=== PATIENT | male | born 1975 | race Caucasian/White ===

== ENCOUNTER 2022-11-28 11:49 | Emergency (ER) | payer MEDICARE ==
[~2022-11-28] VITALS: Ht 180.3 cm; Wt 99.8 kg
[2022-11-28 12:19] VITALS: BP 161/109
[2022-11-28] MEDS ORDERED: CYCL10 PO (12:25)
[2022-11-28] MEDS ORDERED: PERCOCET 10-321 EA13 PO (12:25)
== END 2022-11-28 13:51 | disposition home or self-care (01) ==
LOC: ER 11:49
DX: Z76.0 Encounter for issue of repeat prescription (principal)
CPT/HCPCS: 99281

== ENCOUNTER 2022-12-11 16:49 | Emergency (ER) | payer MEDICARE ==
[~2022-12-11] VITALS: Ht 177.8 cm; Wt 99.8 kg
[~2022-12-11 16:49] MED LIST: CYCL10 PO; PERCOCET 10-321 EA13 PO
[2022-12-11 16:58] VITALS: BP 137/92
== END 2022-12-11 19:23 | disposition home or self-care (01) ==
LOC: ER 16:49
DX: M54.12 Radiculopathy, cervical region (principal); Z79.1 Long term (current) use of non-steroidal anti-inflammatories (NSAID)
CPT/HCPCS: 99283; A9270

== ENCOUNTER → 2022-12-29 | Outpatient (CLI) | payer MEDICARE | END | disposition home or self-care (01) | LOC: LAB 08:49 → LAB SHORT 08:49 | PROVIDERS: Nurse Practitioner Family | DX: G89.4 Chronic pain syndrome (principal); Z79.899 Other long term (current) drug therapy | CPT/HCPCS: G0480 ==

== ENCOUNTER → 2023-01-12 | Outpatient (CLI) | payer MEDICARE ==
[2023-01-12 12:56] LABS: BASOPHILS ABSOLUTE AUTO 0.02 K/mm3 (0.00-0.23); BASOPHILS PERCENT AUTO 0 % (0-2); EOSINOPHILS ABSOLUTE AUTO 0.16 K/mm3 (0.00-0.68); EOSINOPHILS PERCENT AUTO 2 % (0-6); Hematocrit 46.3 % (37.0-53.0); IMMATURE GRAN ABSOLUTE AUTO 0.02 K/mm3 (0.00-0.10); IMMATURE GRAN PERCENT AUTO 0 % (0-1); LYMPHOCYTES ABSOLUTE AUTO 1.24 K/mm3 (0.84-5.20); LYMPHOCYTES PERCENT AUTO 17 % (21-46); MONOCYTES ABSOLUTE AUTO 0.89 K/mm3 (0.16-1.47); MONOCYTES PERCENT AUTO 12 % (4-13); Mean Corpuscular HGB 30.5 pg (26.0-34.0); Mean Corpuscular HGB Conc 34.6 g/dL (31.5-36.5); Mean Corpuscular Volume 88 fL (80-100); NEUTROPHILS ABSOLUTE AUTO 5.03 K/mm3 (1.96-9.15); NEUTROPHILS PERCENT AUTO 68 % (41-73); Platelet Count 263 K/mm3 (150-400); RDW Coefficient Variation 12.5 % (11.7-14.2); RDW Standard Deviation 40.7 fL (35.1-46.3); Red Blood Cell Count 5.24 M/mm3 (4.30-5.90); White Blood Cell Count 7.36 K/mm3 (4.00-11.30)
[2023-01-12 13:51] LABS: Albumin, Blood 4.4 g/dL (3.4-5.0); Albumin/Globulin Ratio 1.4 (0.8-1.8); Bilirubin, Total 0.3 mg/dL (0.1-1.0); Bun/Creatinine Ratio 25.5 (12.0-20.0); Calcium, Blood 9.2 mg/dL (8.5-10.1); Creatinine, Blood 0.82 mg/dL (0.60-1.20); Globulin, Blood 3.2 g/dL (2.2-4.0); Potassium, Blood 4.1 mmol/L (3.5-5.5); Thyroid Stimulating Hormone 1.15 uIU/mL (0.360-4.800); Total Protein, Blood 7.6 g/dL (6.4-8.2)
== END | disposition home or self-care (01) ==
LOC: LAB SHORT 07:10 → LAB 07:10
PROVIDERS: Nurse Practitioner Family
DX: G89.4 Chronic pain syndrome (principal); R53.81 Other malaise; Z79.899 Other long term (current) drug therapy
CPT/HCPCS: 80053; 84443; 85025; G0480

== ENCOUNTER 2023-01-20 09:33 | Emergency (ER) | payer MEDICARE ==
[~2023-01-20] VITALS: Ht 177.8 cm; Wt 90.3 kg
[2023-01-20] MEDS ORDERED: PHENYTOIN SODI100 MG PO (09:50)
[2023-01-20] MEDS ORDERED: NASAL SPRAY88 ML (10:11)
[2023-01-20] MEDS ORDERED: FLUT.05NI (10:11)
[2023-01-20] MEDS ORDERED: AMOCLA875 PO (10:12)
[2023-01-20 11:30] VITALS: BP 154/86
== END 2023-01-20 11:44 | disposition home or self-care (01) ==
LOC: ER 09:33
DX: J01.90 Acute sinusitis, unspecified (principal); Z88.8 Allergy status to other drugs, medicaments and biological substances
CPT/HCPCS: 96374; 96375; 99283-25; A9270; J1100; J1885; J2765

== ENCOUNTER 2023-02-20 15:52 | Emergency (ER) | payer MEDICARE ==
[~2023-02-20] VITALS: Ht 177.8 cm; Wt 79.4 kg
[~2023-02-20 15:52] MED LIST changes: +AMOCLA875 PO; +FLUT.05NI; +NASAL SPRAY88 ML; +PHENYTOIN SODI100 MG PO
[2023-02-20 16:05] VITALS: BP 184/115
[2023-02-20 16:32] LABS: Source, Urine Clean Catch
[2023-02-20 16:37] LABS: Appearance, Urine Clear (Clear); Bilirubin, Urine Neg (Neg); Blood, Urine Neg (Neg); Color, Urine Yellow (P-Yellow); Glucose Qualitative, Urine Neg (Neg); Ketones, Urine Neg (Neg); Leukocyte Esterase, Urine Neg (Neg); Nitrite, Urine Neg (Neg); Protein, Urine Neg (Neg); Urobilinogen, Urine NORM (Normal)
[2023-02-20] MEDS ORDERED: OXYCODONE-ACET1 EAC2 (17:06)
[2023-02-20] MEDS ORDERED: SILDENAFIL CITR50 MG (17:07)
[2023-02-20] MEDS ORDERED: CYCL10 PO (17:07)
[2023-02-20] MEDS ORDERED: PHENYTOIN SODI100 MG PO (17:07)
[2023-02-20 17:37] LABS: BASOPHILS ABSOLUTE AUTO 0.03 K/mm3 (0.00-0.23); BASOPHILS PERCENT AUTO 0 % (0-2); EOSINOPHILS ABSOLUTE AUTO 0.18 K/mm3 (0.00-0.68); EOSINOPHILS PERCENT AUTO 2 % (0-6); Hematocrit 43.7 % (37.0-53.0); Hemoglobin 15.4 g/dL (13.5-17.5); IMMATURE GRAN ABSOLUTE AUTO 0.01 K/mm3 (0.00-0.10); IMMATURE GRAN PERCENT AUTO 0 % (0-1); LYMPHOCYTES ABSOLUTE AUTO 1.34 K/mm3 (0.84-5.20); LYMPHOCYTES PERCENT AUTO 17 % (21-46); MONOCYTES PERCENT AUTO 12 % (4-13); Mean Corpuscular HGB 30.9 pg (26.0-34.0); Mean Corpuscular HGB Conc 35.2 g/dL (31.5-36.5); Mean Corpuscular Volume 88 fL (80-100); Mean Platelet Volume 8.5 fL (9.1-12.4); NEUTROPHILS ABSOLUTE AUTO 5.27 K/mm3 (1.96-9.15); NEUTROPHILS PERCENT AUTO 68 % (41-73); Platelet Count 228 K/mm3 (150-400); RDW Coefficient Variation 11.9 % (11.7-14.2); RDW Standard Deviation 38.5 fL (35.1-46.3); Red Blood Cell Count 4.99 M/mm3 (4.30-5.90); White Blood Cell Count 7.73 K/mm3 (4.00-11.30)
[2023-02-20 17:55] LABS: Albumin/Globulin Ratio 1.2 (0.8-1.8); Bilirubin, Total 0.1 mg/dL (0.1-1.0); Bun/Creatinine Ratio 14.6 (12.0-20.0); Calcium, Blood 9.1 mg/dL (8.5-10.1); Creatinine, Blood 0.96 mg/dL (0.60-1.20); Globulin, Blood 3.4 g/dL (2.2-4.0); Potassium, Blood 4.2 mmol/L (3.5-5.5); Total Protein, Blood 7.4 g/dL (6.4-8.2)
[2023-02-20] MEDS ORDERED: ONDA4ODT MM (18:14)
== END 2023-02-20 18:27 | disposition home or self-care (01) ==
LOC: ER 15:52
PROVIDERS: Physician Assistant
DX: M54.2 Cervicalgia (principal); Z88.8 Allergy status to other drugs, medicaments and biological substances; Z79.899 Other long term (current) drug therapy
CPT/HCPCS: 80053; 81003; 85025; 99283; A9270

== ENCOUNTER 2023-02-28 19:38 | Emergency (ER) | payer MEDICARE ==
[~2023-02-28] VITALS: Ht 177.8 cm; Wt 79.4 kg
[~2023-02-28 19:38] MED LIST changes: +ONDA4ODT MM; +OXYCODONE-ACET1 EAC2; +SILDENAFIL CITR50 MG
[2023-02-28 20:44] LABS: BASOPHILS ABSOLUTE AUTO 0.03 K/mm3 (0.00-0.23); BASOPHILS PERCENT AUTO 0 % (0-2); EOSINOPHILS ABSOLUTE AUTO 0.07 K/mm3 (0.00-0.68); EOSINOPHILS PERCENT AUTO 1 % (0-6); Hematocrit 41.5 % (37.0-53.0); Hemoglobin 15.1 g/dL (13.5-17.5); IMMATURE GRAN ABSOLUTE AUTO 0.03 K/mm3 (0.00-0.10); IMMATURE GRAN PERCENT AUTO 0 % (0-1); LYMPHOCYTES ABSOLUTE AUTO 1.33 K/mm3 (0.84-5.20); LYMPHOCYTES PERCENT AUTO 13 % (21-46); MONOCYTES ABSOLUTE AUTO 0.99 K/mm3 (0.16-1.47); MONOCYTES PERCENT AUTO 10 % (4-13); Mean Corpuscular HGB Conc 36.4 g/dL (31.5-36.5); Mean Corpuscular Volume 85 fL (80-100); Mean Platelet Volume 8.9 fL (9.1-12.4); NEUTROPHILS ABSOLUTE AUTO 7.85 K/mm3 (1.96-9.15); NEUTROPHILS PERCENT AUTO 76 % (41-73); Platelet Count 260 K/mm3 (150-400); RDW Standard Deviation 37.2 fL (35.1-46.3); Red Blood Cell Count 4.87 M/mm3 (4.30-5.90)
[2023-02-28 20:58] LABS: Albumin, Blood 4.3 g/dL (3.4-5.0); Albumin/Globulin Ratio 1.3 (0.8-1.8); Bilirubin, Total 0.3 mg/dL (0.1-1.0); Bun/Creatinine Ratio 22.4 (12.0-20.0); Calcium, Blood 9.1 mg/dL (8.5-10.1); Creatinine, Blood 0.81 mg/dL (0.60-1.20); Globulin, Blood 3.4 g/dL (2.2-4.0); Potassium, Blood 3.6 mmol/L (3.5-5.5); Total Protein, Blood 7.7 g/dL (6.4-8.2)
[2023-02-28 21:09] VITALS: BP 155/110
== END 2023-02-28 21:50 | disposition left against medical advice (07) ==
LOC: ER 19:38
PROVIDERS: Student in an Organized Health Care Education/Training Program
DX: R07.9 Chest pain, unspecified (principal); Z53.21 Procedure and treatment not carried out due to patient leaving prior to being seen by health care provider
CPT/HCPCS: 71046; 80053; 84484; 85025; 93005; 93010; 99282

== ENCOUNTER 2023-03-20 13:38 | Emergency (ER) | payer MEDICARE ==
[~2023-03-20] VITALS: Ht 177.8 cm; Wt 81.7 kg
[2023-03-20 13:59] VITALS: BP 164/104
[2023-03-20] MEDS ORDERED: CYCL10 PO (14:01)
== END 2023-03-20 14:03 | disposition home or self-care (01) ==
LOC: ER 13:38
DX: Z76.0 Encounter for issue of repeat prescription (principal); Z98.890 Other specified postprocedural states; Z79.899 Other long term (current) drug therapy; Z88.8 Allergy status to other drugs, medicaments and biological substances
CPT/HCPCS: 99281

== ENCOUNTER 2023-04-02 18:23 | Emergency (ER) | payer MEDICARE ==
[~2023-04-02] VITALS: Ht 177.8 cm; Wt 81.7 kg
[2023-04-02 18:37] VITALS: BP 137/81
[2023-04-02 18:55] LABS: Source, Urine Clean Catch
[2023-04-02 19:13] LABS: Appearance, Urine Clear (Clear); Bilirubin, Urine Neg (Neg); Blood, Urine 1+ (Neg); Color, Urine Yellow (P-Yellow); Glucose Qualitative, Urine Neg (Neg); Ketones, Urine Neg (Neg); Leukocyte Esterase, Urine Neg (Neg); Nitrite, Urine Neg (Neg); Protein, Urine Neg (Neg); Urobilinogen, Urine NORM (Normal)
[2023-04-02 20:06] LABS: Bacteria Not Seen /hpf; Red Blood Cells, Urine 0-2 /hpf (0-2); Squamous Epithelial Cells Not Seen /hpf (Few); White Blood Cells, Urine Not Seen /hpf (0-5)
== END 2023-04-02 20:20 | disposition home or self-care (01) ==
LOC: ER 18:23
PROVIDERS: Physician Assistant
DX: B34.9 Viral infection, unspecified (principal); Z79.899 Other long term (current) drug therapy; Z88.8 Allergy status to other drugs, medicaments and biological substances
CPT/HCPCS: 81001; 99283

== ENCOUNTER 2023-04-21 00:07 | Emergency (ER) | payer MEDICARE ==
[~2023-04-21] VITALS: Ht 177.8 cm; Wt 81.7 kg
[2023-04-21 00:58] LABS: BASOPHILS ABSOLUTE AUTO 0.04 K/mm3 (0.00-0.23); BASOPHILS PERCENT AUTO 0 % (0-2); EOSINOPHILS ABSOLUTE AUTO 0.14 K/mm3 (0.00-0.68); EOSINOPHILS PERCENT AUTO 1 % (0-6); Hematocrit 41.8 % (37.0-53.0); Hemoglobin 14.6 g/dL (13.5-17.5); IMMATURE GRAN ABSOLUTE AUTO 0.03 K/mm3 (0.00-0.10); IMMATURE GRAN PERCENT AUTO 0 % (0-1); LYMPHOCYTES ABSOLUTE AUTO 1.33 K/mm3 (0.84-5.20); LYMPHOCYTES PERCENT AUTO 12 % (21-46); MONOCYTES ABSOLUTE AUTO 1.03 K/mm3 (0.16-1.47); MONOCYTES PERCENT AUTO 10 % (4-13); Mean Corpuscular HGB Conc 34.9 g/dL (31.5-36.5); Mean Corpuscular Volume 89 fL (80-100); Mean Platelet Volume 8.9 fL (9.1-12.4); NEUTROPHILS ABSOLUTE AUTO 8.19 K/mm3 (1.96-9.15); NEUTROPHILS PERCENT AUTO 76 % (41-73); Platelet Count 279 K/mm3 (150-400); RDW Coefficient Variation 12.1 % (11.7-14.2); RDW Standard Deviation 39.6 fL (35.1-46.3); Red Blood Cell Count 4.71 M/mm3 (4.30-5.90); White Blood Cell Count 10.76 K/mm3 (4.00-11.30)
[2023-04-21 01:15] LABS: Alanine Aminotransfer (ALT/SGP 41 U/L (12-78); Albumin, Blood 3.8 g/dL (3.4-5.0); Albumin/Globulin Ratio 1.2 (0.8-1.8); Alk Phos 114 U/L (50-136); Anion Gap 5 mmol/L (6-16); Aspartate Aminotrans (AST/SGOT 26 U/L (12-37); Bilirubin, Total 0.2 mg/dL (0.1-1.0); Blood Urea Nitrogen 21 mg/dL (8-24); Bun/Creatinine Ratio 29.7 (12.0-20.0); CO2, Blood 29 mmol/L (21-32); Calcium, Blood 8.8 mg/dL (8.5-10.1); Chloride, Blood 106 mmol/L (98-108); Creatinine, Blood 0.71 mg/dL (0.60-1.20); Dilantin (Phenytoin), Total 13.2 ug/mL (10.0-20.0); Globulin, Blood 3.1 g/dL (2.2-4.0); Glomerular Filtration Rate 112 (60-); Glucose, Blood 102 mg/dL (70-99); Potassium, Blood 3.8 mmol/L (3.5-5.5); Sodium, Blood 140 mmol/L (136-145); Total Protein, Blood 6.9 g/dL (6.4-8.2)
[2023-04-21] MEDS ORDERED: Atarax10 MG PO (04:12)
[2023-04-21 04:30] VITALS: BP 126/71
== END 2023-04-21 04:32 | disposition home or self-care (01) ==
LOC: ER 00:07
PROVIDERS: Student in an Organized Health Care Education/Training Program
DX: R07.9 Chest pain, unspecified (principal); F41.9 Anxiety disorder, unspecified; I10 Essential (primary) hypertension; Z79.899 Other long term (current) drug therapy; Z88.8 Allergy status to other drugs, medicaments and biological substances
CPT/HCPCS: 80053; 80185; 84484; 85025; 93005; 93010; 99283-25; A9270

== ENCOUNTER 2023-08-30 12:49 | Inpatient (IN) | payer MEDICARE ==
[~2023-08-30] VITALS: Ht 177.8 cm; Wt 88.7 kg
[~2023-08-30 12:49] MED LIST changes: -ACET500 PO; -ESCI10 PO; -FLONASE ALLERG9.9 ML; -LOSA50 PO; -PHENY100ER PO; -VANCOCIN HCL125 MG PO
[2023-08-30] MEDS ORDERED: NS 1,000 ML IV SCH (15:35)
[2023-08-30] MEDS ORDERED: ESCI10 PO (17:58)
[2023-08-30] MEDS ORDERED: LOSA50 PO (17:58)
[2023-08-30] MEDS ORDERED: Acetaminophen 325 MG TABLET PO ONE (18:15)
[2023-08-30 18:39] LABS: Source, Urine Clean Catch
[2023-08-30 18:45] LABS: Appearance, Urine Clear (Clear); Bilirubin, Urine Neg (Neg); Blood, Urine 2+ (Neg); Color, Urine Yellow (P-Yellow); Glucose Qualitative, Urine Neg (Neg); Ketones, Urine Neg (Neg); Leukocyte Esterase, Urine Neg (Neg); Nitrite, Urine Neg (Neg); Protein, Urine 3+ (Neg); Specific Gravity, Urine 1.015 (1.003-1.022); Urobilinogen, Urine NORM (Normal)
[2023-08-30] MEDS ORDERED: Ciprofloxacin 400MG/D5 200ML 200 ML IV ONE (19:15)
[2023-08-30] MEDS ORDERED: MetroNIDAZOLE 500MG/NS 100 ml 100 ML IV ONE (19:20)
[2023-08-30 19:23] LABS: Amorphous Light (0-Heavy); Bacteria Rare /hpf; Hyaline Casts 0-2 /lpf (0-2); Red Blood Cells, Urine 0-2 /hpf (0-2); Squamous Epithelial Cells Rare /hpf (Few); White Blood Cells, Urine 0-2 /hpf (0-5)
[2023-08-30 22:18] LABS: Adenovirus F 40/41 Not Detected (NOT DETECT); Astrovirus Not Detected (NOT DETECT); Campylobacter Sp Not Detected (NOT DETECT); Cryptosporidium Not Detected (NOT DETECT); Cyclospora Cayetanensis Not Detected (NOT DETECT); E. Coli O157 Not Detected (NOT DETECT); Entamoeba Histolytica Not Detected (NOT DETECT); Enteroaggregative E. coli-EAEC Not Detected (NOT DETECT); Enteropathogenic E. coli-EPEC Not Detected (NOT DETECT); Enterotoxigenic E. coli-ETEC Not Detected (NOT DETECT); Giardia Lamblia Not Detected (NOT DETECT); Norovirus GI/GII Not Detected (NOT DETECT); Plesiomonas Shigelloides Not Detected (NOT DETECT); Rotavirus A Not Detected (NOT DETECT); Salmonella Sp Not Detected (NOT DETECT); Sapovirus Not Detected (NOT DETECT); Shiga Toxin-prod E. coli-STEC Not Detected (NOT DETECT); Shigella/Enteroin E. coli-EIEC Not Detected (NOT DETECT); Vibrio Cholerae Not Detected (NOT DETECT); Vibrio Sp Not Detected (NOT DETECT); Yersinia Enterocolitica Not Detected (NOT DETECT)
[2023-08-30] MEDS ORDERED: FentaNYL Citrate 50 MCG/ML 2 ML Injection IV ONE (23:10)
[2023-08-30] MEDS ORDERED: Ondansetron HCl 2 MG / ML 2ML Vial IV PRN (23:25)
[2023-08-30] MEDS ORDERED: FentaNYL Citrate 50 MCG/ML 2 ML Injection IV PRN (23:30)
[2023-08-30] MEDS ORDERED: Vancomycin HCl 250 MG Cap PO ONE (23:40)
[2023-08-30] MEDS ORDERED: NS 1,000 ML IV ONE (23:40)
[2023-08-31 04:20] VITALS: BP 155/88
[2023-08-31] MEDS ORDERED: PHENY100ER PO (04:23)
[2023-08-31 05:12] LABS: Hematocrit 38.9 % (37.0-53.0); Hemoglobin 13.5 g/dL (13.5-17.5); Mean Corpuscular HGB 31.4 pg (26.0-34.0); Mean Corpuscular HGB Conc 34.7 g/dL (31.5-36.5); Mean Corpuscular Volume 91 fL (80-100); Mean Platelet Volume 9.1 fL (9.1-12.4); Platelet Count 135 K/mm3 (150-400); RDW Coefficient Variation 12.4 % (11.7-14.2); RDW Standard Deviation 41.4 fL (35.1-46.3); White Blood Cell Count 11.46 K/mm3 (4.00-11.30)
[2023-08-31] MEDS ORDERED: HYDROmorphone HCl/Pf 1MG SYR IV PRN (05:20)
[2023-08-31 05:27] LABS: International Normalized Ratio 1.05; Prothrombin Time Results 11.2 Sec (9.7-11.5)
[2023-08-31] MEDS ORDERED: Vancomycin HCl 125 MG Cap PO SCH (06:00)
[2023-08-31 06:02] LABS: BAND PERCENT MAN 29 % (0-8); BASOPHILS PERCENT MAN 0 % (0-2); EOSINOPHILS PERCENT MAN 0 % (0-6); LYMPHOCYTES ABSOLUTE MAN 0.45 K/mm3 (0.84-5.20); LYMPHOCYTES PERCENT MAN 4 % (21-46); MONOCYTES ABSOLUTE MAN 1.94 K/mm3 (0.16-1.47); MONOCYTES PERCENT MAN 17 % (4-13); MYELOCYTE ABSOLUTE MAN 0.11 K/mm3 (0.00-0.00); MYELOCYTE PERCENT MAN 1 % (0-0); NEUTROPHILS ABSOLUTE MAN 8.93 K/mm3 (1.96-9.15); SEG NEUTROPHILS PERCENT MAN 49 % (41-73); TOTAL CELLS COUNTED 100
[2023-08-31 06:04] LABS: Albumin, Blood 2.9 g/dL (3.4-5.0); Bilirubin, Total 0.4 mg/dL (0.1-1.0); Bun/Creatinine Ratio 36.8 (12.0-20.0); Calcium, Blood 8.7 mg/dL (8.5-10.1); Creatinine, Blood 0.73 mg/dL (0.60-1.20); Total Protein, Blood 5.9 g/dL (6.4-8.2)
--- NOTE | 2023-08-31 07:19 | NUR ---
SHIFT SUMMARY PATIENT ARRIVED TO PCU 16 VIA STRETCHER. PATIENT IS ALERT AND ORIENTED X4, STEADY ON HIS FEET. MEDICATED PER EMAR FOR PAIN. ON ROOM AIR WITH SPO2 >90%. BLOOD PRESSURE STABLE, SINUS TACH 110-120 ON TELE. NO ACUTE ISSUES NOTED OVERNIGHT. WILL CONTINUE TO MONITOR CALL LIGHT WITHIN REACH.
[2023-08-31 07:36] VITALS: BP 142/90
[2023-08-31] MEDS ORDERED: MetroNIDAZOLE 500MG/NS 100 ml 100 ML IV SCH (08:00)
[2023-08-31] MEDS ORDERED: Enoxaparin 40 MG/0.4 ML SYR SC SCH (09:00)
[2023-08-31 11:34] VITALS: BP 150/90
[2023-08-31] MEDS ORDERED: OxyCODONE 10/Acetamin 325 TABLET PO PRN (12:05)
[2023-08-31] MEDS ORDERED: Losartan Potassium 50 MG Tab PO SCH ×2 (12:56→21:00)
[2023-08-31] MEDS ORDERED: Misc. Capsule PO SCH (13:37)
[2023-08-31] MEDS ORDERED: Ketorolac Tromethamine 15mg Vial IV PRN (15:30)
[2023-08-31 15:43] VITALS: BP 144/108
--- NOTE | 2023-08-31 18:16 | NUR ---
SHIFT SUMMARY: PT HAS BEEN ALERT, SLEEPY AT TIMES, ORIENTED x4, COOPERATIVE W/CARE. O2 SATS MAINTAINED >93% ON RA, PT DENIES SOB. ST ON MONITOR W/RATE 110s-120s, PT DENIES CHEST PAIN. ABDOMEN TENDER TO TOUCH. PT C/O INTERMITTENT HEADACHE AND R SIDED, MOSTLY LOWER, ABDOMINAL PAIN. PT MEDICATED W/PRN MEDICATIONS. PT HAS BEEN CONTINENT OF URINE/BOWEL, LOOSE STOOLS CONTINUE THROUGH TODAY, ABX THERAPY PROVIDED PER EMAR. CURRENTLY, PT IS RESTING IN BED W/S.O. AT BEDSIDE. WILL CONTINUE TO MONITOR AND TREAT ACCORDINGLY UNTIL CHANGE OF SHIFT.
[2023-08-31 21:24] VITALS: BP 157/98
[2023-08-31 23:16] VITALS: BP 135/82
--- NOTE | 2023-08-31 23:53 | NUR ---
TRANSFER SUMMARY PATIENT HAS BEEN INDEPENDEND IN HIS ROOM WITH FRIEND AT BEDSIDE. PATIENT MEDICATED PER EMAR FOR ABDOMINAL PAIN. ON ROOM AIR WITH SPO2 >90%. VITAL SIGNS STABLE. REPORT GIVEN TO DUNCAN TRIMBLE FOR ASSUMPTION OF CARE. PATIENT BEING TRANSFERRED TO MEDICAL FLOOR ROOM 303.
--- NOTE | 2023-09-01 00:44 | NUR ---
NURSE NOTE PATIENT ARRIVED TO MEDICAL FLOOR 1230. PATIENT AND SIGNIFICANT OTHER ORIENTED TO ROOM. PATIENT MEDICATED FOR 8/10 PAIN ON ARRIVAL.
[2023-09-01 04:55] VITALS: BP 145/91
--- NOTE | 2023-09-01 05:37 | NUR ---
SHIFT SUMMARY PATIENT IS ALERT AND ORIENTED. PATIENT HAS HAD NO ACUTE EVENTS THIS SHIFT. VITAL SIGNS REVIEWED. PATIENT WAS A TRANSFER FROM PCU. PATIENT HAS BEEN MEDICATED FOR PAIN THIS SHIFT. PATIENT HAS BEEN IND IN ROOM. PATIENT HAS HAD NO COMPLAINTS OF SOB, NAUSEA, OR VOMITTING THIS SHIFT. BED IN LOCKED AND LOWEST POSITION. WILL MONITOR UNTIL SHIFT CHANGE.
[2023-09-01 06:35] LABS: Hematocrit 39.6 % (37.0-53.0); Hemoglobin 13.7 g/dL (13.5-17.5); Mean Corpuscular HGB Conc 34.6 g/dL (31.5-36.5); Mean Corpuscular Volume 90 fL (80-100); Mean Platelet Volume 8.9 fL (9.1-12.4); Platelet Count 149 K/mm3 (150-400); RDW Coefficient Variation 12.3 % (11.7-14.2); RDW Standard Deviation 40.7 fL (35.1-46.3); Red Blood Cell Count 4.42 M/mm3 (4.30-5.90)
[2023-09-01 07:05] LABS: BAND PERCENT MAN 12 % (0-8); BASOPHILS PERCENT MAN 0 % (0-2); EOSINOPHILS PERCENT MAN 0 % (0-6); LYMPHOCYTES ABSOLUTE MAN 0.68 K/mm3 (0.84-5.20); LYMPHOCYTES PERCENT MAN 7 % (21-46); METAMYELOCYTE ABSOLUTE MAN 0.09 K/mm3 (0.00-0.00); METAMYELOCYTE PERCENT MAN 1 % (0-0); MONOCYTES ABSOLUTE MAN 2.15 K/mm3 (0.16-1.47); MONOCYTES PERCENT MAN 22 % (4-13); NEUTROPHILS ABSOLUTE MAN 6.86 K/mm3 (1.96-9.15); SEG NEUTROPHILS PERCENT MAN 58 % (41-73); TOTAL CELLS COUNTED 100
[2023-09-01 07:10] LABS: Albumin, Blood 2.6 g/dL (3.4-5.0); Albumin/Globulin Ratio 0.8 (0.8-1.8); Bilirubin, Total 0.4 mg/dL (0.1-1.0); Bun/Creatinine Ratio 27.9 (12.0-20.0); Calcium, Blood 8.9 mg/dL (8.5-10.1); Creatinine, Blood 0.79 mg/dL (0.60-1.20); Globulin, Blood 3.1 g/dL (2.2-4.0); Potassium, Blood 3.9 mmol/L (3.5-5.5); Total Protein, Blood 5.7 g/dL (6.4-8.2)
[2023-09-01 07:27] VITALS: BP 142/85
[2023-09-01] MEDS ORDERED: Citalopram Hydrobromide 20 MG Tab PO SCH (09:00)
[2023-09-01] MEDS ORDERED: FLONASE ALLERG9.9 ML (15:53)
[2023-09-01] MEDS ORDERED: ACET500 PO (16:03)
[2023-09-01] MEDS ORDERED: VANCOCIN HCL125 MG PO (16:04)
--- NOTE | 2023-09-01 17:16 | NUR ---
DISCHARGE NOTE: DR. MATHUR ADVISED PATIENT THAT HE COULD GO HOME. PATIENT STILL HAVING PAIN AND REQUESTING PAIN MEDICATION. PER DR. MATHUR IS PATIENT IS STILL REQUIRING OPIATES FOR PAIN MANAGEMENT HE DIDN'T WANT TO DISCHARGE PATIENT. THIS WAS RELAYED TO THE PATIENT AND THE PATIENT STATED " HE WOULD BE LEAVING." I NOTIFIED DR. MATHUR OF PATIENT'S RESPONSE AND DR. MATHUR STATED THE HE WOULD PROCEED WITH DISCHARGE AND THAT THE PATIENT CANNOT HAVE OPIATES. PATIENT NOTIFIED. TORADOL WAS GIVEN TO PATIENT FOR PAIN PRIOR TO DISCHARGE. DISCHARGE DISCUSSED WITH PATIENT. HE COLLECTED HIS BELONGINGS, PUT ON HIS SHOES AND WAS WHEELED DOWN BY THE [facility] TO [facility]. NO SIGNS OR SYMPTOMS OF DISTRESS DURING DISCHARGE.
== END 2023-09-01 17:15 | disposition home or self-care (01) | DRG 372 ==
LOC: ER 12:49 → MEDS 23:23 → ERHOLD 23:23 → PCU 23:23 → MEDS 23:23 → PCU 08-31 04:08 → MEDS 09-01 00:22
PROVIDERS: Family Medicine; Student in an Organized Health Care Education/Training Program; ADMIT Internal Medicine
DX: A04.72 Enterocolitis due to Clostridium difficile, not specified as recurrent (principal); N17.9 Acute kidney failure, unspecified; G89.29 Other chronic pain; M54.9 Dorsalgia, unspecified; F32.A Depression, unspecified; I10 Essential (primary) hypertension; G40.909 Epilepsy, unspecified, not intractable, without status epilepticus; E86.0 Dehydration; F41.9 Anxiety disorder, unspecified; Z88.8 Allergy status to other drugs, medicaments and biological substances; Z79.891 Long term (current) use of opiate analgesic; Z79.899 Other long term (current) drug therapy
CPT/HCPCS: 36415; 74177; 80053; 81001; 83880; 85025; 85610; 87324; 87507; 96361; 96365-59; 96367; 96375; 99285-25; A9270; J0744; J1170; J1885; J2405; J3010; J7030; Q9967

== ENCOUNTER → 2023-08-30 | Outpatient (CLI) | payer MEDICARE ==
[~2023-08-30] MED LIST changes: +ACET500 PO; +Atarax10 MG PO; +ESCI10 PO; +FLONASE ALLERG9.9 ML; +LOSA50 PO; +MOBIC15 MG PO; +Mobic15 MG PO; +PHENY100ER PO; +Percocet 5-3251 EACH PO; +VANCOCIN HCL125 MG PO
[2023-08-30 09:29] LABS: Hematocrit 42.9 % (37.0-53.0); Hemoglobin 14.6 g/dL (13.5-17.5); Mean Corpuscular HGB 31.1 pg (26.0-34.0); Mean Corpuscular Volume 91 fL (80-100); Mean Platelet Volume 9.1 fL (9.1-12.4); Platelet Count 163 K/mm3 (150-400); RDW Coefficient Variation 12.3 % (11.7-14.2); RDW Standard Deviation 40.8 fL (35.1-46.3); White Blood Cell Count 22.55 K/mm3 (4.00-11.30)
[2023-08-30 09:40] LABS: Albumin, Blood 3.4 g/dL (3.4-5.0); Albumin/Globulin Ratio 0.9 (0.8-1.8); Bilirubin, Total 0.6 mg/dL (0.1-1.0); Bun/Creatinine Ratio 17.3 (12.0-20.0); Calcium, Blood 8.7 mg/dL (8.5-10.1); Creatinine, Blood 1.91 mg/dL (0.60-1.20); Globulin, Blood 3.6 g/dL (2.2-4.0); Magnesium, Blood 1.9 mg/dL (1.6-2.4); Potassium, Blood 4.1 mmol/L (3.5-5.5)
[2023-08-30 10:17] LABS: BAND PERCENT MAN 12 % (0-8); LYMPHOCYTES ABSOLUTE MAN 0.67 K/mm3 (0.84-5.20); LYMPHOCYTES PERCENT MAN 3 % (21-46); NEUTROPHILS ABSOLUTE MAN 18.94 K/mm3 (1.96-9.15); SEG NEUTROPHILS PERCENT MAN 72 % (41-73)
[2023-08-30 10:18] LABS: MONOCYTES ABSOLUTE MAN 2.93 K/mm3 (0.16-1.47); MONOCYTES PERCENT MAN 13 % (4-13)
== END | disposition home or self-care (01) ==
LOC: LAB SHORT 09:22
PROVIDERS: Physician Assistant
DX: R03.1 Nonspecific low blood-pressure reading (principal); R42 Dizziness and giddiness; R10.84 Generalized abdominal pain; R11.2 Nausea with vomiting, unspecified
CPT/HCPCS: 80053; 83605; 83690; 83735; 84484; 85025; 87040

== ENCOUNTER 2023-11-04 19:16 | Emergency (ER) | payer MEDICARE ==
[~2023-11-04] VITALS: Ht 177.8 cm; Wt 90.7 kg
[~2023-11-04 19:16] MED LIST changes: +ACET500 PO; +DICY20 PO; +ESCI10 PO; +FLONASE ALLERG9.9 ML; +LOSA50 PO; +PHENY100ER PO; +VANCOCIN HCL125 MG PO
[2023-11-04 19:44] VITALS: BP 164/94
[2023-11-04 20:03] LABS: BASOPHILS ABSOLUTE AUTO 0.04 K/mm3 (0.00-0.23); BASOPHILS PERCENT AUTO 0 % (0-2); EOSINOPHILS ABSOLUTE AUTO 0.33 K/mm3 (0.00-0.68); EOSINOPHILS PERCENT AUTO 4 % (0-6); Hematocrit 42.6 % (37.0-53.0); Hemoglobin 14.9 g/dL (13.5-17.5); IMMATURE GRAN ABSOLUTE AUTO 0.01 K/mm3 (0.00-0.10); IMMATURE GRAN PERCENT AUTO 0 % (0-1); LYMPHOCYTES ABSOLUTE AUTO 1.62 K/mm3 (0.84-5.20); LYMPHOCYTES PERCENT AUTO 18 % (21-46); MONOCYTES ABSOLUTE AUTO 0.89 K/mm3 (0.16-1.47); MONOCYTES PERCENT AUTO 10 % (4-13); Mean Corpuscular Volume 91 fL (80-100); Mean Platelet Volume 8.5 fL (9.1-12.4); NEUTROPHILS ABSOLUTE AUTO 6.01 K/mm3 (1.96-9.15); NEUTROPHILS PERCENT AUTO 68 % (41-73); Platelet Count 232 K/mm3 (150-400); RDW Coefficient Variation 11.7 % (11.7-14.2); RDW Standard Deviation 39.3 fL (35.1-46.3); Red Blood Cell Count 4.66 M/mm3 (4.30-5.90)
[2023-11-04 20:22] LABS: Albumin, Blood 3.9 g/dL (3.4-5.0); Albumin/Globulin Ratio 1.2 (0.8-1.8); Bilirubin, Total 0.3 mg/dL (0.1-1.0); Bun/Creatinine Ratio 26.2 (12.0-20.0); Calcium, Blood 8.8 mg/dL (8.5-10.1); Creatinine, Blood 0.76 mg/dL (0.60-1.20); Globulin, Blood 3.2 g/dL (2.2-4.0); Potassium, Blood 4.6 mmol/L (3.5-5.5); Total Protein, Blood 7.1 g/dL (6.4-8.2)
[2023-11-04 22:32] LABS: Influenza A, PCR NEGATIVE (NEGATIVE); Influenza B, PCR NEGATIVE (NEGATIVE); Resp Syncytial Virus, PCR NEGATIVE (NEGATIVE); SARS-Cov-2 (COVID-19) PCR, MMC NEGATIVE (NEGATIVE)
== END 2023-11-04 21:47 | disposition home or self-care (01) ==
LOC: ER 19:16
PROVIDERS: Student in an Organized Health Care Education/Training Program
DX: Z53.21 Procedure and treatment not carried out due to patient leaving prior to being seen by health care provider (principal)
CPT/HCPCS: 0241U; 80053; 85025; 99281

== ENCOUNTER 2023-11-06 17:04 | Emergency (ER) | payer OTHER ==
[~2023-11-06] VITALS: Ht 177.8 cm; Wt 90.7 kg
[2023-11-06 17:09] VITALS: BP 162/102
[2023-11-06] MEDS ORDERED: Ketorolac Tromethamine 30mg Vial IM ONE (18:55)
== END 2023-11-06 19:38 | disposition home or self-care (01) ==
LOC: ER 17:04
DX: R51.9 Headache, unspecified (principal); I10 Essential (primary) hypertension; Z79.899 Other long term (current) drug therapy; Z88.8 Allergy status to other drugs, medicaments and biological substances
CPT/HCPCS: 70450; 96372; 99284-25; J1885

== ENCOUNTER 2024-01-08 14:22 | Emergency (ER) | payer OTHER ==
[~2024-01-08] VITALS: Ht 177.8 cm; Wt 86.2 kg
[2024-01-08 14:46] VITALS: BP 166/110
== END 2024-01-08 15:38 | disposition home or self-care (01) ==
LOC: ER 14:22
DX: M54.2 Cervicalgia (principal); G89.29 Other chronic pain; I10 Essential (primary) hypertension; Z76.5 Malingerer [conscious simulation]; Z79.899 Other long term (current) drug therapy; Z88.8 Allergy status to other drugs, medicaments and biological substances
CPT/HCPCS: 96361; 96374; 99283

== ENCOUNTER 2024-01-25 12:43 | Emergency (ER) | payer OTHER ==
[~2024-01-25] VITALS: Ht 182.9 cm; Wt 86.2 kg
[2024-01-25 13:16] VITALS: BP 137/87
[2024-01-25] MEDS ORDERED: Lactulose 20 GM/30 ML UDC PO ONE (14:45)
[2024-01-25] MEDS ORDERED: Kristalose20 GM PO (14:46)
[2024-01-25] MEDS ORDERED: Miralax17 GM PO (14:46)
[2024-01-25] MEDS ORDERED: Ondansetron Odt8 MG MM (14:46)
== END 2024-01-25 15:06 | disposition home or self-care (01) ==
LOC: ER 12:43
DX: M54.2 Cervicalgia (principal); M54.9 Dorsalgia, unspecified; G89.29 Other chronic pain; K59.00 Constipation, unspecified; R11.2 Nausea with vomiting, unspecified; I10 Essential (primary) hypertension; Z79.899 Other long term (current) drug therapy; Z88.8 Allergy status to other drugs, medicaments and biological substances
CPT/HCPCS: 99282; A9270

== ENCOUNTER 2024-01-27 18:28 | Emergency (ER) | payer OTHER ==
[~2024-01-27] VITALS: Ht 177.8 cm; Wt 99.8 kg
[~2024-01-27 18:28] MED LIST changes: +Kristalose20 GM PO; +Miralax17 GM PO; +Ondansetron Odt8 MG MM
[2024-01-27 18:41] VITALS: BP 170/100
== END 2024-01-27 18:58 | disposition home or self-care (01) ==
LOC: ER 18:28
DX: M54.2 Cervicalgia (principal); G89.29 Other chronic pain; I10 Essential (primary) hypertension; Z79.899 Other long term (current) drug therapy; Z88.8 Allergy status to other drugs, medicaments and biological substances
CPT/HCPCS: 99282

== ENCOUNTER 2024-03-01 17:36 | Emergency (ER) | payer OTHER ==
[~2024-03-01] VITALS: Ht 177.8 cm; Wt 93.9 kg
[2024-03-01 17:47] VITALS: BP 154/100
[2024-03-01] MEDS ORDERED: Lidocaine 4% 1 Patch TOP ONE (23:55)
[2024-03-01] MEDS ORDERED: Ketorolac Tromethamine 30mg Vial IM ONE (23:55)
[2024-03-01] MEDS ORDERED: Dexamethasone Sod Phos 10 MG/ML 1ML VIAL PO ONE (23:55)
[2024-03-02] MEDS ORDERED: PRED20 PO (00:10)
[2024-03-02] MEDS ORDERED: LIDO700A20 TOP (00:10)
== END 2024-03-02 00:45 | disposition home or self-care (01) ==
LOC: ER 17:36
DX: M54.16 Radiculopathy, lumbar region (principal); Z88.8 Allergy status to other drugs, medicaments and biological substances; Z79.899 Other long term (current) drug therapy; I10 Essential (primary) hypertension; G40.909 Epilepsy, unspecified, not intractable, without status epilepticus
CPT/HCPCS: 72100; 96372; 99283-25; A9270; J1100; J1885

== ENCOUNTER 2024-03-31 16:58 | Emergency (ER) | payer OTHER ==
[~2024-03-31] VITALS: Ht 177.8 cm; Wt 95.2 kg
[~2024-03-31 16:58] MED LIST changes: +LIDO700A20 TOP; +PRED20 PO
[2024-03-31 17:08] VITALS: BP 154/110
[2024-03-31] MEDS ORDERED: OxyCODONE 5 mg/Acetamin 325 mg TABLET PO ONE (17:25)
[2024-03-31] MEDS ORDERED: Ketorolac Tromethamine 30mg Vial IM ONE (17:30)
== END 2024-03-31 17:46 | disposition home or self-care (01) ==
LOC: ER 16:58
DX: M54.50 Low back pain, unspecified (principal); I10 Essential (primary) hypertension; Z79.52 Long term (current) use of systemic steroids; Z79.899 Other long term (current) drug therapy; Z88.8 Allergy status to other drugs, medicaments and biological substances
CPT/HCPCS: 96372; 99283-25; A9270; J1885

== ENCOUNTER 2024-04-02 09:34 | Emergency (ER) | payer OTHER ==
[~2024-04-02] VITALS: Ht 177.8 cm; Wt 99.8 kg
[2024-04-02] MEDS ORDERED: HYDROmorphone HCl/Pf 1MG SYR IV ONE ×2 (10:20→11:25)
[2024-04-02] MEDS ORDERED: Ketorolac Tromethamine 15mg Vial IV ONE (10:20)
[2024-04-02] MEDS ORDERED: AMIT25 PO (10:28)
[2024-04-02 11:44] VITALS: BP 141/88
== END 2024-04-02 11:49 | disposition home or self-care (01) ==
LOC: ER 09:34
DX: M54.16 Radiculopathy, lumbar region (principal); I10 Essential (primary) hypertension; Z79.899 Other long term (current) drug therapy; Z88.8 Allergy status to other drugs, medicaments and biological substances; Z79.82 Long term (current) use of aspirin
CPT/HCPCS: 96374; 96375; 96376; 99283-25; J1171; J1885

== ENCOUNTER 2024-04-05 17:43 | Emergency (ER) | payer OTHER ==
[~2024-04-05] VITALS: Ht 177.8 cm; Wt 99.8 kg
[~2024-04-05 17:43] MED LIST changes: +AMIT25 PO
[2024-04-05] MEDS ORDERED: Ketorolac Tromethamine 30mg Vial IV ONE (21:55)
[2024-04-05] MEDS ORDERED: Dexamethasone Sod Phos 10 MG/ML 1ML VIAL IV ONE (21:55)
[2024-04-05] MEDS ORDERED: HYDROmorphone HCl/Pf 1MG SYR IV ONE (21:55)
[2024-04-05] MEDS ORDERED: Acetaminophen 500 MG Tab PO ONE (21:55)
[2024-04-05 23:30] VITALS: BP 123/76
== END 2024-04-05 23:44 | disposition home or self-care (01) ==
LOC: ER 17:43
DX: M54.50 Low back pain, unspecified (principal); Z88.8 Allergy status to other drugs, medicaments and biological substances; Z79.899 Other long term (current) drug therapy; I10 Essential (primary) hypertension; G40.909 Epilepsy, unspecified, not intractable, without status epilepticus
CPT/HCPCS: 96374; 96375; 99283-25; A9270; J1100; J1171; J1885

== ENCOUNTER 2024-04-10 10:37 | Emergency (ER) | payer OTHER ==
[~2024-04-10] VITALS: Ht 167.6 cm; Wt 81.7 kg
[2024-04-10 11:20] VITALS: BP 153/85
[2024-04-10] MEDS ORDERED: HYDR1TAB94 PO (14:21)
== END 2024-04-10 14:16 | disposition home or self-care (01) ==
LOC: ER 10:37
DX: M54.50 Low back pain, unspecified (principal); G89.29 Other chronic pain; I10 Essential (primary) hypertension; Z79.899 Other long term (current) drug therapy; Z88.8 Allergy status to other drugs, medicaments and biological substances
CPT/HCPCS: 99282

== ENCOUNTER → 2024-04-11 | Outpatient (CLI) | payer OTHER ==
[~2024-04-11] MED LIST changes: +HYDR1TAB94 PO
[2024-04-11 17:45] LABS: U Amphetamine Screen Not Detected; U Barbituate Screen DETECTED; U Benzodiazapine Screen Not Detected; U Buprenorphine Screen Not Detected; U Cannabinoids Screen Not Detected; U Cocaine Screen Not Detected; U Methadone Screen Not Detected; U Methamphetamine Screen Not Detected; U Opiates Screen Not Detected; U Oxycodone Screen Not Detected; U Phencyclidine Screen Not Detected
== END | disposition home or self-care (01) ==
LOC: LAB SHORT 16:28 → LAB 16:28
PROVIDERS: Physician Assistant
DX: Z51.81 Encounter for therapeutic drug level monitoring (principal); Z79.899 Other long term (current) drug therapy

== ENCOUNTER 2024-05-06 19:40 | Emergency (ER) | payer OTHER ==
[~2024-05-06] VITALS: Ht 177.8 cm; Wt 99.8 kg
[2024-05-06 19:58] VITALS: BP 181/112
[2024-05-06] MEDS ORDERED: OxyCODONE HCL 5 MG TAB PO ONE (22:10)
== END 2024-05-06 22:19 | disposition home or self-care (01) ==
LOC: ER 19:40
DX: M54.50 Low back pain, unspecified (principal); G89.29 Other chronic pain; I10 Essential (primary) hypertension; G40.909 Epilepsy, unspecified, not intractable, without status epilepticus; Z87.442 Personal history of urinary calculi; Z88.8 Allergy status to other drugs, medicaments and biological substances; Z79.899 Other long term (current) drug therapy
CPT/HCPCS: 99282; A9270

== ENCOUNTER 2024-07-29 19:42 | Emergency (ER) | payer OTHER ==
[~2024-07-29] VITALS: Ht 177.8 cm; Wt 99.8 kg
[2024-07-29 19:52] VITALS: BP 148/103
[2024-07-29] MEDS ORDERED: OxyCODONE HCL 5 MG TAB PO ONE (21:55)
[2024-07-29] MEDS ORDERED: Lidocaine 4% 1 Patch TOP ONE (21:55)
== END 2024-07-29 22:18 | disposition left against medical advice (07) ==
LOC: ER 19:42
DX: M54.50 Low back pain, unspecified (principal); I10 Essential (primary) hypertension; G40.909 Epilepsy, unspecified, not intractable, without status epilepticus; Z53.21 Procedure and treatment not carried out due to patient leaving prior to being seen by health care provider; Z88.8 Allergy status to other drugs, medicaments and biological substances; Z79.899 Other long term (current) drug therapy
CPT/HCPCS: 72100; 99282-25; A9270

== ENCOUNTER 2024-07-31 17:39 | Emergency (ER) | payer OTHER ==
[~2024-07-31] VITALS: Ht 177.8 cm; Wt 99.8 kg
[2024-07-31] MEDS ORDERED: LORazepam 1 MG Tab PO ONE (18:40)
[2024-07-31 18:55] LABS: Albumin, Blood 4.2 g/dL (3.4-5.0); Albumin/Globulin Ratio 1.4 (0.8-1.8); Bilirubin, Total 0.6 mg/dL (0.1-1.0); Calcium, Blood 9.6 mg/dL (8.5-10.1); Creatinine, Blood 0.77 mg/dL (0.60-1.20); Globulin, Blood 3.1 g/dL (2.2-4.0); Potassium, Blood 3.7 mmol/L (3.5-5.5); Total Protein, Blood 7.3 g/dL (6.4-8.2)
[2024-07-31 19:15] VITALS: BP 162/98
== END 2024-07-31 19:30 | disposition home or self-care (01) ==
LOC: ER 17:39
PROVIDERS: Student in an Organized Health Care Education/Training Program
DX: R55 Syncope and collapse (principal); I10 Essential (primary) hypertension; G40.909 Epilepsy, unspecified, not intractable, without status epilepticus; Z88.8 Allergy status to other drugs, medicaments and biological substances; Z79.899 Other long term (current) drug therapy
CPT/HCPCS: 80053; 93005; 93010; 99284-25; A9270

== ENCOUNTER 2024-09-06 19:18 | Emergency (ER) | payer OTHER ==
[~2024-09-06] VITALS: Ht 177.8 cm; Wt 95.2 kg
[2024-09-06 19:28] VITALS: BP 178/109
[2024-09-06 19:47] LABS: BASOPHILS ABSOLUTE AUTO 0.04 K/mm3 (0.00-0.23); BASOPHILS PERCENT AUTO 0 % (0-2); EOSINOPHILS ABSOLUTE AUTO 0.14 K/mm3 (0.00-0.68); EOSINOPHILS PERCENT AUTO 1 % (0-6); Hematocrit 44.2 % (37.0-53.0); Hemoglobin 15.9 g/dL (13.5-17.5); IMMATURE GRAN ABSOLUTE AUTO 0.03 K/mm3 (0.00-0.10); IMMATURE GRAN PERCENT AUTO 0 % (0-1); LYMPHOCYTES ABSOLUTE AUTO 2.61 K/mm3 (0.84-5.20); LYMPHOCYTES PERCENT AUTO 20 % (21-46); MONOCYTES ABSOLUTE AUTO 1.44 K/mm3 (0.16-1.47); MONOCYTES PERCENT AUTO 11 % (4-13); Mean Corpuscular HGB 31.1 pg (26.0-34.0); Mean Corpuscular Volume 87 fL (80-100); Mean Platelet Volume 8.6 fL (9.1-12.4); NEUTROPHILS ABSOLUTE AUTO 9.15 K/mm3 (1.96-9.15); NEUTROPHILS PERCENT AUTO 68 % (41-73); Platelet Count 280 K/mm3 (150-400); RDW Coefficient Variation 11.7 % (11.7-14.2); RDW Standard Deviation 37.4 fL (35.1-46.3); Red Blood Cell Count 5.11 M/mm3 (4.30-5.90); White Blood Cell Count 13.41 K/mm3 (4.00-11.30)
[2024-09-06 19:56] LABS: Albumin, Blood 4.7 g/dL (3.4-5.0); Albumin/Globulin Ratio 1.6 (0.8-1.8); Bilirubin, Total 0.4 mg/dL (0.1-1.0); Bun/Creatinine Ratio 18.2 (12.0-20.0); Calcium, Blood 9.5 mg/dL (8.5-10.1); Creatinine, Blood 0.72 mg/dL (0.60-1.20); Globulin, Blood 2.9 g/dL (2.2-4.0); Potassium, Blood 3.3 mmol/L (3.5-5.5); Total Protein, Blood 7.6 g/dL (6.4-8.2)
== END 2024-09-06 21:27 | disposition left against medical advice (07) ==
LOC: ER 19:18
PROVIDERS: Student in an Organized Health Care Education/Training Program
DX: R55 Syncope and collapse (principal); Z53.29 Procedure and treatment not carried out because of patient's decision for other reasons
CPT/HCPCS: 71046; 80053; 84484; 85025; 93005; 93010

== ENCOUNTER 2024-11-02 16:21 | Emergency (ER) | payer OTHER ==
[~2024-11-02] VITALS: Ht 177.8 cm; Wt 99.8 kg
[2024-11-02 16:56] VITALS: BP 182/90
[2024-11-02] MEDS ORDERED: BETASEPT118 M1 UD (17:39)
[2024-11-02] MEDS ORDERED: Clindamycin HC150 MG PO (17:39)
[2024-11-02] MEDS ORDERED: HYDR1TAB94 PO (17:39)
== END 2024-11-02 17:48 | disposition home or self-care (01) ==
LOC: ER 16:21
DX: K04.7 Periapical abscess without sinus (principal)
CPT/HCPCS: 99282

== ENCOUNTER → 2024-11-15 | Outpatient (CLI) | payer OTHER ==
[~2024-11-15] MED LIST changes: +BETASEPT118 M1 UD; +Clindamycin HC150 MG PO
[2024-11-15 12:19] LABS: Alanine Aminotransfer (ALT/SGP 49.0 U/L (12-78); Albumin, Blood 4.2 g/dL (3.4-5.0); Albumin/Globulin Ratio 1.3 (0.8-1.8); Anion Gap 9.0 mmol/L (3-11); Aspartate Aminotrans (AST/SGOT 24.0 U/L (12-37); Bilirubin, Total 0.3 mg/dL (0.1-1.0); Blood Urea Nitrogen 20.0 mg/dL (8-24); CO2, Blood 31.0 mmol/L (21-32); Calcium, Blood 9.4 mg/dL (8.5-10.1); Chloride, Blood 101.0 mmol/L (98-108); Creatinine, Blood 0.73 mg/dL (0.60-1.20); Globulin, Blood 3.3 g/dL (2.2-4.0); Glucose, Blood 110.0 mg/dL (70-99); Potassium, Blood 4.2 mmol/L (3.5-5.5); Sodium, Blood 137.0 mmol/L (136-145); Total Protein, Blood 7.5 g/dL (6.4-8.2)
[2024-11-15 12:36] LABS: BASOPHILS ABSOLUTE AUTO 0.03 K/mm3 (0.00-0.23); BASOPHILS PERCENT AUTO 0 % (0-2); EOSINOPHILS ABSOLUTE AUTO 0.24 K/mm3 (0.00-0.68); EOSINOPHILS PERCENT AUTO 2 % (0-6); Hematocrit 42.1 % (37.0-53.0); Hemoglobin 15.3 g/dL (13.5-17.5); IMMATURE GRAN ABSOLUTE AUTO 0.02 K/mm3 (0.00-0.10); IMMATURE GRAN PERCENT AUTO 0 % (0-1); LYMPHOCYTES ABSOLUTE AUTO 1.46 K/mm3 (0.84-5.20); LYMPHOCYTES PERCENT AUTO 12 % (21-46); MONOCYTES ABSOLUTE AUTO 1.20 K/mm3 (0.16-1.47); MONOCYTES PERCENT AUTO 10 % (4-13); Mean Corpuscular HGB Conc 36.3 g/dL (31.5-36.5); Mean Corpuscular Volume 87 fL (80-100); NEUTROPHILS ABSOLUTE AUTO 8.86 K/mm3 (1.96-9.15); NEUTROPHILS PERCENT AUTO 75 % (41-73); NRBC ABSOLUTE 0.00 K/mm3 (0.00-0.02); NRBC Auto 0.0 /100 WBC (0.0-0.2); Platelet Count 269 K/mm3 (150-400); RDW Coefficient Variation 12.1 % (11.7-14.2); RDW Standard Deviation 38.9 fL (35.1-46.3)
== END | disposition home or self-care (01) ==
LOC: LAB SHORT 11:59 → LAB 11:59
PROVIDERS: Emergency Medicine
DX: R42 Dizziness and giddiness (principal)
CPT/HCPCS: 80053; 83880; 84484; 85025

== ENCOUNTER → 2024-12-16 | Outpatient (CLI) | payer OTHER ==
[2024-12-16 12:34] LABS: BASOPHILS ABSOLUTE AUTO 0.03 K/mm3 (0.00-0.23); BASOPHILS PERCENT AUTO 0 % (0-2); EOSINOPHILS ABSOLUTE AUTO 0.16 K/mm3 (0.00-0.68); EOSINOPHILS PERCENT AUTO 2 % (0-6); Hematocrit 43.7 % (37.0-53.0); Hemoglobin 15.4 g/dL (13.5-17.5); IMMATURE GRAN ABSOLUTE AUTO 0.05 K/mm3 (0.00-0.10); IMMATURE GRAN PERCENT AUTO 1 % (0-1); LYMPHOCYTES ABSOLUTE AUTO 1.71 K/mm3 (0.84-5.20); LYMPHOCYTES PERCENT AUTO 17 % (21-46); MONOCYTES ABSOLUTE AUTO 1.31 K/mm3 (0.16-1.47); MONOCYTES PERCENT AUTO 13 % (4-13); Mean Corpuscular HGB Conc 35.2 g/dL (31.5-36.5); Mean Corpuscular Volume 88 fL (80-100); NEUTROPHILS ABSOLUTE AUTO 6.88 K/mm3 (1.96-9.15); NEUTROPHILS PERCENT AUTO 68 % (41-73); NRBC ABSOLUTE 0.00 K/mm3 (0.00-0.02); NRBC Auto 0.0 /100 WBC (0.0-0.2); Platelet Count 229 K/mm3 (150-400); RDW Coefficient Variation 12.1 % (11.7-14.2); RDW Standard Deviation 38.8 fL (35.1-46.3)
[2024-12-16 12:50] LABS: Alanine Aminotransfer (ALT/SGP 40.0 U/L (12-78); Albumin, Blood 4.0 g/dL (3.4-5.0); Albumin/Globulin Ratio 1.3 (0.8-1.8); Anion Gap 10.0 mmol/L (3-11); Aspartate Aminotrans (AST/SGOT 15.0 U/L (12-37); Bilirubin, Total 0.3 mg/dL (0.1-1.0); Blood Urea Nitrogen 14.0 mg/dL (8-24); CO2, Blood 32.0 mmol/L (21-32); Calcium, Blood 9.3 mg/dL (8.5-10.1); Chloride, Blood 101.0 mmol/L (98-108); Creatinine, Blood 0.72 mg/dL (0.60-1.20); Globulin, Blood 3.2 g/dL (2.2-4.0); Glucose, Blood 103.0 mg/dL (70-99); Potassium, Blood 4.0 mmol/L (3.5-5.5); Sodium, Blood 139.0 mmol/L (136-145); Thyroid Stimulating Hormone 0.576 uIU/mL (0.360-4.800); Total Protein, Blood 7.2 g/dL (6.4-8.2)
== END | disposition home or self-care (01) ==
LOC: LAB 12:25 → LAB SHORT 12:25
PROVIDERS: Physician Assistant
DX: R07.9 Chest pain, unspecified (principal); R53.83 Other fatigue
CPT/HCPCS: 80053; 83880; 84443; 84484; 85025

== ENCOUNTER 2024-12-27 16:41 | Emergency (ER) | payer OTHER ==
[~2024-12-27] VITALS: Ht 177.8 cm; Wt 99.8 kg
[2024-12-27 16:59] VITALS: BP 147/90
[2024-12-27] MEDS ORDERED: Dexamethasone Sod Phos 10 MG/ML 1ML VIAL PO ONE (17:55)
== END 2024-12-27 18:08 | disposition home or self-care (01) ==
LOC: ER 16:41
DX: M54.50 Low back pain, unspecified (principal); G89.29 Other chronic pain; I10 Essential (primary) hypertension; Z88.8 Allergy status to other drugs, medicaments and biological substances; Z79.2 Long term (current) use of antibiotics; Z79.899 Other long term (current) drug therapy; Z87.442 Personal history of urinary calculi; Z90.49 Acquired absence of other specified parts of digestive tract
CPT/HCPCS: 99283; J1100

== ENCOUNTER 2025-01-10 14:32 | Emergency (ER) | payer OTHER ==
[~2025-01-10] VITALS: Ht 177.8 cm; Wt 99.8 kg
[2025-01-10 14:44] VITALS: BP 163/89
[2025-01-10] MEDS ORDERED: Lidocaine 4% 1 Patch TOP ONE (17:25)
[2025-01-10] MEDS ORDERED: Ketorolac Tromethamine 30mg Vial IM ONE (17:25)
[2025-01-10] MEDS ORDERED: CYCL10 PO (18:02)
[2025-01-10] MEDS ORDERED: IBU600 M1 PO (18:02)
== END 2025-01-10 17:58 | disposition home or self-care (01) ==
LOC: ER 14:32
DX: M54.50 Low back pain, unspecified (principal); G89.29 Other chronic pain; I10 Essential (primary) hypertension; Z79.899 Other long term (current) drug therapy; Z88.8 Allergy status to other drugs, medicaments and biological substances
CPT/HCPCS: 99282; A9270; J1885

== ENCOUNTER 2025-03-23 21:45 | Emergency (ER) | payer OTHER ==
[~2025-03-23] VITALS: Ht 177.8 cm; Wt 99.8 kg
[~2025-03-23 21:45] MED LIST changes: +IBU600 M1 PO
[2025-03-23 22:38] LABS: Alanine Aminotransfer (ALT/SGP 45 U/L (12-78); Albumin, Blood 4.1 g/dL (3.4-5.0); Albumin/Globulin Ratio 1.3 (0.8-1.8); Anion Gap 8 mmol/L (3-11); Aspartate Aminotrans (AST/SGOT 40 U/L (12-37); Bilirubin, Total 0.3 mg/dL (0.1-1.0); Blood Urea Nitrogen 24 mg/dL (8-24); CO2, Blood 27 mmol/L (21-32); Calcium, Blood 9.1 mg/dL (8.5-10.1); Chloride, Blood 107 mmol/L (98-108); Creatinine, Blood 0.69 mg/dL (0.60-1.20); Dilantin (Phenytoin), Total 11.5 ug/mL (10.0-20.0); Globulin, Blood 3.2 g/dL (2.2-4.0); Glucose, Blood 112 mg/dL (70-99); Potassium, Blood 4.4 mmol/L (3.5-5.5); Sodium, Blood 138 mmol/L (136-145); Total Protein, Blood 7.3 g/dL (6.4-8.2)
[2025-03-23 23:16] LABS: BASOPHILS ABSOLUTE AUTO 0.04 K/mm3 (0.00-0.23); BASOPHILS PERCENT AUTO 0 % (0-2); EOSINOPHILS ABSOLUTE AUTO 0.23 K/mm3 (0.00-0.68); EOSINOPHILS PERCENT AUTO 2 % (0-6); Hematocrit 41.7 % (37.0-53.0); Hemoglobin 15.2 g/dL (13.5-17.5); IMMATURE GRAN ABSOLUTE AUTO 0.05 K/mm3 (0.00-0.10); IMMATURE GRAN PERCENT AUTO 0 % (0-1); LYMPHOCYTES ABSOLUTE AUTO 1.54 K/mm3 (0.84-5.20); LYMPHOCYTES PERCENT AUTO 12 % (21-46); MONOCYTES ABSOLUTE AUTO 1.43 K/mm3 (0.16-1.47); MONOCYTES PERCENT AUTO 11 % (4-13); Mean Corpuscular HGB Conc 36.5 g/dL (31.5-36.5); Mean Corpuscular Volume 87 fL (80-100); NEUTROPHILS ABSOLUTE AUTO 9.94 K/mm3 (1.96-9.15); NEUTROPHILS PERCENT AUTO 75 % (41-73); NRBC ABSOLUTE 0.00 K/mm3 (0.00-0.02); NRBC Auto 0.0 /100 WBC (0.0-0.2); Platelet Count 219 K/mm3 (150-400); RDW Coefficient Variation 11.9 % (11.7-14.2); RDW Standard Deviation 38.1 fL (35.1-46.3)
[2025-03-24 00:03] LABS: Influenza A, PCR NEGATIVE (NEGATIVE); Influenza B, PCR NEGATIVE (NEGATIVE); Resp Syncytial Virus, PCR NEGATIVE (NEGATIVE); SARS-Cov-2 (COVID-19) PCR, MMC NEGATIVE (NEGATIVE)
[2025-03-24 01:00] VITALS: BP 143/101
== END 2025-03-24 01:18 | disposition home or self-care (01) ==
LOC: ER 21:45
PROVIDERS: Emergency Medicine; Physician Assistant
DX: J32.8 Other chronic sinusitis (principal); I10 Essential (primary) hypertension; G43.909 Migraine, unspecified, not intractable, without status migrainosus; Z88.8 Allergy status to other drugs, medicaments and biological substances; Z79.899 Other long term (current) drug therapy; Z87.442 Personal history of urinary calculi; Z59.89 Other problems related to housing and economic circumstances
CPT/HCPCS: 80053; 80185; 85025; 87637; 99284